=== PATIENT | male | born 1945 | race Caucasian/White ===

== ENCOUNTER → 2016-11-22 | Outpatient (CLI) | payer MEDICARE ==
--- NOTE | 2016-11-22 16:31 | Diagnostic Imaging Report ---
EXAMINATION: Right lower extremity duplex venous ultrasound. TECHNIQUE: DVT protocol. Multiple sonographic images with color Doppler and waveform interrogation were performed of the right lower extremity veins with compression and augmentation maneuvers. INDICATION: Right leg pain. FINDINGS: The right lower extremity veins from the groin to below the knee veins were examined with normal color-flow, compressibility and normal waveform demonstrated. The great saphenous vein is patent. IMPRESSION: No evidence of DVT in the right lower extremity. Dictated by: Dictated on workstation # [id number]
== END ==
LOC: RAD 16:02
DX: M79.89 Other specified soft tissue disorders (principal)

== ENCOUNTER 2021-03-22 23:55 | Inpatient (IN) | payer MEDICARE ==
[~2021-03-22] VITALS: Ht 172.7 cm; Wt 82.0 kg
--- NOTE | 2021-03-23 01:01 | ED Respiratory ---
General Chief Complaint: Respiratory Problems Stated Complaint: SOB Nursing Triage Note: soa x2 weeks, productive cough Source: patient Exam Limitations: no limitations (LINDA MAYA STUDENT) History of Present Illness Date Seen by Provider: Mar 23, 2021 Time Seen by Provider: 00:40 Initial Comments Pt presents to ED via POV with complaint of SOA. He states that it began 2wks ago and denies recent travel or sick contacts. He has intermittently felt out of breath, worse with laying on his back, and better with upright positioning. He has had a clear productive cough. No complaints of pain or other discomfort. He was a 1/2ppd smoker but quit about 30yrs ago. Only takes OTC allergy medication and levothyroxine. Denies chest pain, N/V, abd pain, dysuria. Timing/Duration: other (onset 2wks ago) Severity: moderate Context: anxiety with sleeping and unable to catch breath Prior Episodes/Possible Cause: unknown cause Modifying Factors: Improves With Coughing, Improves With Lying Down (worse with laying flat) Associated Symptoms: cough; No facial pain, No fever/chills, No headache, No lightheadedness; shortness of breath; No sore throat (LINDA MAYA STUDENT) Initial Comments Patient endorses orthopnea no fever and his cough is only productive of clear phlegm. He denies a history of heart failure swelling or weight gain. No history of heart disease. No chest pain. No history of pulmonary embolism. (WILMA LOPEZ) Allergies and Home Medications Allergies Coded Allergies: No Known Drug Allergies (Unverified , 03/23/21) Patient Home Medication List Home Medication List Reviewed: Yes (LINDA MAYA STUDENT) Review of Systems Review of Systems Constitutional: No chills, No dizziness, No fever EENTM: No hearing loss, No ear pain, No vision loss Respiratory: cough, short of breath Cardiovascular: No chest pain, No edema, No palpitations Gastrointestinal: No abdominal pain, No constipation, No diarrhea, No nausea, N o vomiting Genitourinary: No decreased output, No dysuria, No hematuria Musculoskeletal: No back pain, No joint pain, No muscle pain Skin: No change in color, No rash Psychiatric/Neurological: Denies Headache, Denies Numbness, Denies Paresthesia, Denies Tingling (LINDA MAYA STUDENT) All Other Systems Reviewed Negative Unless Noted: Yes (LINDA MAYA STUDENT) Past Qxrcriv-Nchqnc-Cnvpit Hx Past Med/Social Hx: Reviewed Nursing Past Med/Soc Hx (LINDA MAYA) Patient Social History Alcohol Use: Denies Use Type Used: Smokeless Tobacco 2nd Hand Smoke Exposure: No Recent Infectious Disease Expo: No Recent Hopitalizations: No (LINDA MAYA) Immunizations Up To Date Tetanus Booster (TDap): Unknown (LINDA MAYA) Seasonal Allergies Seasonal Allergies: No (LINDA MAYA) Past Medical History Surgeries: Yes (hernia l groin) Respiratory: No Cardiac: No Neurological: No Genitourinary: No Gastrointestinal: No Musculoskeletal: No Endocrine: Yes Hypothyroidsim HEENT: No Cancer: No Psychosocial: No Integumentary: No Blood Disorders: No (FRANCESCOLINDA CALDERON) Physical Exam Vital Signs - First Documented 03/23/21 00:10 Temp 36.5 Pulse 112 Resp 20 B/P (MAP) 143/90 (107) Pulse Ox 95 O2 Delivery Room Air (WILMA LOPEZ) Capillary Refill : Less Than 3 Seconds (FRANCESCOLINDA CALDERON) Height: '" Weight: lbs. oz. kg; 27.00 BMI Method: General Appearance: WD/WN, no apparent distress Eyes: Bilateral Eye Normal Inspection, Bilateral Eye PERRL, Bilateral Eye EOMI HEENT: PERRL/EOMI, TMs normal (unable to visualize L TM due to cerumen) Neck: non-tender, full range of motion, supple, normal inspection Respiratory: chest non-tender, lungs clear, normal breath sounds, no respiratory distress, no accessory muscle use Cardiovascular: normal peripheral pulses, regular rate, rhythm, no murmur Gastrointestinal: normal bowel sounds, non tender, soft Extremities: normal range of motion, non-tender, normal inspection Neurologic/Psychiatric: no motor/sensory deficits, alert, normal mood/affect, oriented x 3 Skin: normal color, warm/dry Lymphatic: no adenopathy (LINDA MAYA STUDENT) Progress/Results/Core Measures Suspected Sepsis Recent Fever Within 48 Hours: No Infection Criteria Present: None New/Unexplained Altered Menta: No Sepsis Screen: No Definite Risk SIRS Temperature: Pulse: 112 Respiratory Rate: 20 Blood Pressure 143 /90 Mean: 107 (FRANCESCOLINDA [facility] STUDENT) Results/Orders Lab Results Laboratory Tests Test 03/23/21 02:25 03/23/21 02:30 Range/Units Influenza Type A (RT-PCR) Not Detected Not Detecte Influenza Type B (RT-PCR) Not Detected Not Detecte SARS-CoV-2 RNA (RT-PCR) Not Detected Not Detecte White Blood Count 13.2 H 4.3-11.0 10^3/uL Red Blood Count 4.18 L 4.30-5.52 10^6/uL Hemoglobin 13.1 L 13.3-17.7 g/dL Hematocrit 39 L 40-54 % Mean Corpuscular Volume 94 80-99 fL Mean Corpuscular Hemoglobin 31 25-34 pg Mean Corpuscular Hemoglobin Concent 33 32-36 g/dL Red Cell Distribution Width 13.2 10.0-14.5 % Platelet Count 224 130-400 10^3/uL Mean Platelet Volume 10.6 9.0-12.2 fL Immature Granulocyte % (Auto) 0 % Neutrophils (%) (Auto) 77 H 42-75 % Lymphocytes (%) (Auto) 11 L 12-44 % Monocytes (%) (Auto) 10 0-12 % Eosinophils (%) (Auto) 1 0-10 % Basophils (%) (Auto) 0 0-10 % Neutrophils # (Auto) 10.2 H 1.8-7.8 10^3/uL Lymphocytes # (Auto) 1.4 1.0-4.0 10^3/uL Monocytes # (Auto) 1.3 H 0.0-1.0 10^3/uL Eosinophils # (Auto) 0.1 0.0-0.3 10^3/uL Basophils # (Auto) 0.0 0.0-0.1 10^3/uL Immature Granulocyte # (Auto) 0.1 0.0-0.1 10^3/uL Sodium Level 138 135-145 MMOL/L Potassium Level 4.3 3.6-5.0 MMOL/L Chloride Level 104 98-107 MMOL/L Carbon Dioxide Level 18 L 21-32 MMOL/L Anion Gap 16 H 5-14 MMOL/L Blood Urea Nitrogen 22 H 7-18 MG/DL Creatinine 1.51 H 0.60-1.30 MG/DL Estimat Glomerular Filtration Rate 45 BUN/Creatinine Ratio 15 Glucose Level 117 H 70-105 MG/DL Calcium Level 9.7 8.5-10.1 MG/DL Corrected Calcium 9.9 8.5-10.1 MG/DL Total Bilirubin 0.6 0.1-1.0 MG/DL Aspartate Amino Transf (AST/SGOT) 36 H 5-34 U/L Alanine Aminotransferase (ALT/SGPT) 40 0-55 U/L Alkaline Phosphatase 64 40-136 U/L Troponin I 0.175 H <0.028 NG/ML C-Reactive Protein High Sensitivity 3.30 H 0.00-0.50 MG/DL B-Type Natriuretic Peptide 757.1 H <100.0 PG/ML Total Protein 7.6 6.4-8.2 GM/DL Albumin 3.8 3.2-4.5 GM/DL (WILMA LOPEZ) My Orders Orders - WILMA LOPEZ Covid 19 Inhouse Test (03/23/21 02:09) Influenza A And B By Pcr (03/23/21 02:09) Cbc With Automated Diff (03/23/21 02:09) Comprehensive Metabolic Panel (03/23/21 02:09) Chest 1 View, Ap/Pa Only (03/23/21 02:09) Hs C Reactive Protein (03/23/21 02:09) Ed Iv/Invasive Line Start (03/23/21 02:09) Ns Iv 1000 Ml (Sodium Chloride 0.9%) (03/23/21 02:15) Ed Iv/Invasive Line Start (03/23/21 03:46) Ns Iv 500 Ml (Sodium Chloride 0.9%) (03/23/21 04:00) Ct Angio Chest W (03/23/21 03:46) BNP (03/23/21 03:48) Iohexol Injection (Omnipaque 350 Mg/Ml 1 (03/23/21 04:00) Received Contrast (Hold Metformin- Contr (03/23/21 04:00) Sodium Chloride Flush (Catheter Flush Sy (03/23/21 04:00) Ns (Ivpb) (Sodium Chloride 0.9% Ivpb Bag (03/23/21 04:00) Ekg Tracing (03/23/21 04:37) Troponin I (03/23/21 04:37) Aspirin Chewable Tablet (Baby Aspirin Ch (03/23/21 04:45) Furosemide Injection (Lasix Injection) (03/23/21 05:45) Metoprolol Succinate (Xl) Tab (Toprol Xl (03/23/21 05:45) (WILMA LOPEZ) Medications Given in ED Current Medications Medications Dose Ordered Sig/Bryant Route Start Time Stop Time Status Last Admin Dose Admin Aspirin 324 mg ONCE ONCE PO 03/23/21 04:45 03/23/21 04:46 DC 03/23/21 04:47 324 MG Iohexol 100 ml ONCE ONCE IV 03/23/21 04:00 03/23/21 04:01 DC 03/23/21 04:19 70 ML Sodium Chloride 10 ml NEEDED PRN IV 03/23/21 04:00 03/23/21 04:19 10 ML Sodium Chloride 100 ml ONCE ONCE IV 03/23/21 04:00 03/23/21 04:01 DC 03/23/21 04:19 80 ML (WILMA LOPEZ) Vital Signs/I&O 03/23/21 00:10 Temp 36.5 Pulse 112 Resp 20 B/P (MAP) 143/90 (107) Pulse Ox 95 O2 Delivery Room Air (WILMA LOPEZ) Vital Signs/I&O Capillary Refill : Less Than 3 Seconds (LINDA MAYA MED STUDENT) Blood Pressure Mean: 107 Progress Note #1: Time: 03:49 Progress Note I attest that I saw this patient alongside the medical student and agree with his documented history, physical exam and review of systems except as otherwise noted. Concern for orthopnea although he does not have a history of heart failure given his age we will check a BNP. He did seem to get worse after gave a liter of fluids perhaps coincidentally. He does have some crowding and infiltrates on the right side of his lower lung. 13,000 white count and a cough only productive of occasional clear phlegm. Questioning the diagnosis of pneumonia versus pulmonary embolism versus heart failure. We will get a CT angiogram. Progress Note #2: Time: 05:23 Progress Note Lasix 40 mg, aspirin and look for inpatient placement after discussing the case with the patient. (WILMA LOPEZ) ECG Initial ECG Impression Date: Mar 23, 2021 Initial ECG Impression Time: 04:40 Initial ECG Rate: 114 Initial ECG Rhythm: S.Tach Initial ECG Intervals: Normal Initial ECG Impression: Normal Initial ECG Comparisson: No Previous ECG Available Comment Sinus tachycardia with no clinically relevant ST elevation or depression. (WILMA LOPEZ) Diagnostic Imaging Diagonstic Imaging: Xray Plain Films/CT/US/NM/MRI: chest Comments Right lower lobe infiltrate pulmonary congestion appearance. [facility], [place] NAME: NIRURADHA CUI [facility] REC#: [id number] PT STATUS: ADM IN : 1945 PHYSICIAN: WILMA LOPEZ MD ADMIT DATE: 03/23/21 Draft Date of Exam:03/23/21 CHEST 1 VIEW, AP/PA ONLY CHEST 1 VIEW, AP/PA ONLY Indication: Difficulty breathing Comparison: None available. Findings: Bilateral ill-defined pulmonary opacities are most confluent in the right upper lung. Bilateral layering pleural effusions. Cardiac silhouette is enlarged. No pneumothorax. Impression: 1. Cardiomegaly with features most suggestive of congestive heart failure as there is likely pulmonary edema with pleural effusions. Alternatively, atypical infection could give this appearance in appropriate setting. Dictated on workstation # [id number] Dict: 03/23/21608 Trans: 03/23/21 06 [facility] [id number] Interpreted by: DELMER REA MD Electronically signed by: Reviewed: Reviewed by Me Diagonstic Imaging: CT Plain Films/CT/US/NM/MRI: chest (Angiogram) Comments Moderate bilateral pleural effusions. Patchy groundglass opacities concerning for an infectious or inflammatory process. No central pulmonary embolus or thoracic aortic dissection. Morphologic features of cirrhosis. Nonspecific mediastinal and hilar lymphadenopathy. [facility] [place] NAME: NIRURADHA CUI [facility] REC#: [id number] PT STATUS: ADM IN : 1945 PHYSICIAN: WILMA LOPEZ MD ADMIT DATE: 03/23/21 Draft Date of Exam:03/23/21 CT ANGIO CHEST W PROCEDURE: CT angiography Chest TECHNIQUE: After intravenous administration of contrast, thin section axial CT angiography of the chest was performed. 3D MIP reconstructions were made. All CT scans use one or more of the following dose optimizing techniques: automated exposure control, MA and/or KvP adjustment based on a patient size and exam type, or iterative reconstruction. INDICATION: Difficulty breathing COMPARISON: None available. FINDINGS: Vasculature: No pulmonary emboli. No features of right ventricular strain or pulmonary hypertension. Aorta is not opacified and therefore cannot be assessed for pathology. Heart and mediastinum: Visualized thyroid is normal. No supraclavicular or axillary lymphadenopathy. There are multiple mildly enlarged mediastinal and hilar lymph nodes. A right upper paratracheal lymph node measures 1.5 cm. A right hilar lymph node measures 1.7 cm. Heart is enlarged without pericardial effusion. Pleura: Moderate to large bilateral pleural effusions. Lungs and airway: No endoluminal lesion in the trachea or central bronchi. Groundglass opacities and consolidations are present in the right upper lobe. Patchy groundglass opacities and interlobular septal thickening are seen throughout the remainder of the lungs. Upper abdomen: Small sliding-type hiatal hernia. No acute abnormality in the upper abdomen is appreciated. Musculoskeletal: No concerning osseous lesion. IMPRESSION: 1. No acute pulmonary emboli. 2. Bilateral groundglass pulmonary opacities and consolidations are most advanced in the right upper lobe. These are most likely due to pulmonary edema, especially given the moderate to large pleural effusions. Atypical infection could also give this appearance in appropriate setting. 3. Mildly enlarged mediastinal and hilar lymph nodes are likely reactive in nature. 4. Findings are in agreement with the preliminary report. Dictated on workstation # [id number] Dict: 03/23/21 0553 Trans: 03/23/21 0657 [facility] [id number] Interpreted by: DELMER REA MD Electronically signed by: Reviewed: Reviewed Night [facility] Study, Reviewed by Me (WILMA LOPEZ) Departure Communication (Admissions) Time/Spoke to Admitting Phy: 05:25 Discussed the case with Dr. Youssef who agrees to admit the patient to the floor on telemetry with consultation to cardiology. Time/Spoke to Consulting Phy: 05:27 Discussed the case with Dr. Weiner, cardiology who recommends aspirin, Toprol XL 50 mg p.o. daily, 2D echo. Trend the troponins and he will see the patient in consultation. (WILMA LOPEZ) Impression Primary Impression: Heart failure Qualified Codes: I50.9 - Heart failure, unspecified Additional Impression: Acute respiratory failure with hypoxia Disposition: ADMITTED INPATIENT Condition: Stable Admissions Decision to Admit Reason: Admit from ER (General) Decision to Admit/Date: Mar 23, 2021 Time/Decision to Admit Time: 04:00 (WILMA LOPEZ) Departure-Patient Inst. Referrals: ZEYNEP ENRIQUEZ MD (PCP/Family) Primary Care Physician LINDA MAYA MED STUDENT Mar 23, 2021 01:01 WILMA LOPEZ Mar 23, 2021 03:50
[2021-03-23] MEDS ORDERED: NS IV 1000 ML 1,000 ML IV SCH ×2 (02:15→12:00)
[2021-03-23 02:46] LABS: BASOPHILS % (AUTO) 0 % (0-10); EOSINOPHILS # (AUTO) 0.1 10^3/uL (0.0-0.3); EOSINOPHILS % (AUTO) 1 % (0-10); HEMATOCRIT 39 % (40-54); HEMOGLOBIN 13.1 g/dL (13.3-17.7); LYMPHOCYTES # (AUTO) 1.4 10^3/uL (1.0-4.0); LYMPHOCYTES % (AUTO) 11 % (12-44); MEAN CORPUSCULAR HEMOGLOBIN 31 pg (25-34); MEAN CORPUSCULAR HGB CONC 33 g/dL (32-36); MEAN CORPUSCULAR VOLUME 94 fL (80-99); MEAN PLATELET VOLUME 10.6 fL (9.0-12.2); MONOCYTES # (AUTO) 1.3 10^3/uL (0.0-1.0); MONOCYTES % (AUTO) 10 % (0-12); NEUTROPHILS # (AUTO) 10.2 10^3/uL (1.8-7.8); NEUTROPHILS % (AUTO) 77 % (42-75); PLATELET COUNT 224 10^3/uL (130-400); WHITE BLOOD COUNT 13.2 10^3/uL (4.3-11.0)
[2021-03-23 02:57] LABS: ALBUMIN 3.8 GM/DL (3.2-4.5); POTASSIUM 4.3 MMOL/L (3.6-5.0)
[2021-03-23 02:58] LABS: CALCIUM 9.7 MG/DL (8.5-10.1)
[2021-03-23 03:00] LABS: TOTAL PROTEIN 7.6 GM/DL (6.4-8.2)
[2021-03-23 03:01] LABS: BILIRUBIN,TOTAL 0.6 MG/DL (0.1-1.0)
[2021-03-23 03:03] LABS: CREATININE SERUM 1.51 MG/DL (0.60-1.30)
[2021-03-23] MEDS ORDERED: CATHETER FLUSH 10 ML SYR IV PRN (04:00)
[2021-03-23] MEDS ORDERED: NS 100 ML (IVPB) BAG IV ONE (04:00)
[2021-03-23] MEDS ORDERED: NS IV 500 ML 500 ML IV ONE (04:00)
[2021-03-23] MEDS ORDERED: HOLD METFORMIN - RECEIVED CONTRAST 20 ML VIAL IV SCH (04:00)
[2021-03-23] MEDS ORDERED: IOHEXOL 350 MG/ML 100 ML (OMNIPAQUE 350) VIAL IV ONE (04:00)
[2021-03-23] MEDS ORDERED: ASPIRIN 81 MG CHEW (CHILDREN'S ASA) PO ONE (04:45)
[2021-03-23] MEDS ORDERED: FUROSEMIDE 40 MG/4 ML INJ (LASIX) IVP ONE ×2 (05:45→11:45)
[2021-03-23] MEDS ORDERED: meTOproloL SUCCINATE 50 MG (TOPROL XL) TAB PO SCH (05:45)
[2021-03-23] MEDS ORDERED: ONDANSETRON 4 MG/2 ML (SDV) Z0FRAN IV PRN (06:00)
[2021-03-23 06:09] VITALS: BP 137/80
[2021-03-23] MEDS ORDERED: ACETAMINOPHEN 325 MG TABLET PO PRN (06:15)
--- NOTE | 2021-03-23 06:25 | Diagnostic Imaging Report ---
CHEST 1 VIEW, AP/PA ONLY Indication: Difficulty breathing Comparison: None available. Findings: Bilateral ill-defined pulmonary opacities are most confluent in the right upper lung. Bilateral layering pleural effusions. Cardiac silhouette is enlarged. No pneumothorax. Impression: 1. Cardiomegaly with features most suggestive of congestive heart failure as there is likely pulmonary edema with pleural effusions. Alternatively, atypical infection could give this appearance in appropriate setting. Dictated by: Dictated on workstation # [id number]
--- NOTE | 2021-03-23 06:57 | Diagnostic Imaging Report ---
PROCEDURE: CT angiography Chest TECHNIQUE: After intravenous administration of contrast, thin section axial CT angiography of the chest was performed. 3D MIP reconstructions were made. All CT scans use one or more of the following dose optimizing techniques: automated exposure control, MA and/or KvP adjustment based on a patient size and exam type, or iterative reconstruction. INDICATION: Difficulty breathing COMPARISON: None available. FINDINGS: Vasculature: No pulmonary emboli. No features of right ventricular strain or pulmonary hypertension. Aorta is not opacified and therefore cannot be assessed for pathology. Heart and mediastinum: Visualized thyroid is normal. No supraclavicular or axillary lymphadenopathy. There are multiple mildly enlarged mediastinal and hilar lymph nodes. A right upper paratracheal lymph node measures 1.5 cm. A right hilar lymph node measures 1.7 cm. Heart is enlarged without pericardial effusion. Pleura: Moderate to large bilateral pleural effusions. Lungs and airway: No endoluminal lesion in the trachea or central bronchi. Groundglass opacities and consolidations are present in the right upper lobe. Patchy groundglass opacities and interlobular septal thickening are seen throughout the remainder of the lungs. Upper abdomen: Small sliding-type hiatal hernia. No acute abnormality in the upper abdomen is appreciated. Musculoskeletal: No concerning osseous lesion. IMPRESSION: 1. No acute pulmonary emboli. 2. Bilateral groundglass pulmonary opacities and consolidations are most advanced in the right upper lobe. These are most likely due to pulmonary edema, especially given the moderate to large pleural effusions. Atypical infection could also give this appearance in appropriate setting. 3. Mildly enlarged mediastinal and hilar lymph nodes are likely reactive in nature. 4. Findings are in agreement with the preliminary report. Dictated by: Dictated on workstation # [id number]
[2021-03-23] MEDS ORDERED: FUROSEMIDE 40 MG/4 ML INJ (LASIX) IVP SCH ×3 (07:00→17:00)
[2021-03-23] MEDS: CATHETER FLUSH 10 ML SYR IV SCH ×2 (07:04→12:01)
[2021-03-23 08:14] VITALS: BP 132/61
[2021-03-23 08:41] VITALS: BP 137/80
[2021-03-23] MEDS ORDERED: ASPIRIN 81 MG CHEW (CHILDREN'S ASA) PO SCH (09:00)
--- NOTE | 2021-03-23 09:54 | History & Physical-Hospitalist ---
History of Present Illness HPI/Chief Complaint Pt is a 75yoCM with a PMH of hypothyroidism who presented to the ER due to SOB and orthopnea. He reports that he has been short of breath for 2 weeks. He has a cough with clear sputum that has been present for like 1.5 weeks. Last night he was unable to even lie down without having difficulty breathing which was an abr upt change from the night before so he decided to seek evaluation in the ER. He was found to have vascular congestion on CXR and an elevated BNP. He was admitted for presumed CHF exacerbation. This is a new diagnosis for him. He has not history of heart disease though his father at 46yo from an [place]. He report feeling slightly better but still coughing a lot. Source: patient Date Seen 03/23/21 Time Seen by a Provider: 09:54 Attending Physician Marc Youssef MD PCP Robi Carballo MD Referring Physician Date of Admission Mar 23, 2021 at 05:32 Home Medications & Allergies Home Medications Reviewed patient Home Medication Reconciliation performed by pharmacy medication reconciliations senior quality control technician and/or nursing. Patients Allergies have been reviewed. Allergies Allergies Coded Allergies No Known Drug Allergies (Unverified03/23/21) Past Dgfbxkl-Npimpx-Dmrvjk Hx Patient Social History Marrital Status: Smoking Status: Former Smoker Immunizations Up To Date First/Initial COVID19 Vaccinat: 12-28-20 Second COVID19 Vaccination Charli: 01-30-21 Tetanus Booster (TDap): Unknown Seasonal Allergies Seasonal Allergies: No Current Status Advance Directives: No Communicates: Verbally Primary Language: Chinese Preferred Spoken Language: Chinese Is interpretation needed?: No Past Medical History Surgeries: Abdominal (hernia), Tonsillectomy Hypothyroidsim Blood Disorders: No Family Medical History Reviewed Nursing Family Hx No Pertinent Family Hx Review of Systems Constitutional: No chills, No fever Respiratory: cough, dyspnea on exertion; No hemoptysis; orthopnea, short of breath Cardiovascular: No chest pain, No edema, No Hx of Intervention, No palpitations Gastrointestinal: No abdominal pain, No constipation, No diarrhea, No nausea, No vomiting Genitourinary: No discharge, No dysuria Musculoskeletal: no symptoms reported Skin: no symptoms reported Physical Exam Physical Exam Vital Signs Vital Signs - First Documented 03/23/21 03/23/21 00:10 05:45 Temp 36.5 Pulse 112 Resp 20 B/P (MAP) 143/90 (107) Pulse Ox 95 O2 Delivery Room Air O2 Flow Rate 2.00 Capillary Refill : Less Than 3 Seconds Height, Weight, BMI Height: '" Weight: lbs. oz. kg; 27.49 BMI Method: General Appearance: No Apparent Distress, WD/WN HEENT: PERRL/EOMI, Moist Mucous Membranes Neck: Normal Inspection, Supple Respiratory: No Accessory Muscle Use, No Respiratory Distress, Decreased Breath Sounds (in bases) Cardiovascular: Regular Rate, Rhythm, No Murmur Gastrointestinal: Normal Bowel Sounds, Non Tender, Soft Extremity: No Calf Tenderness, No Pedal Edema Neurologic/Psychiatric: Alert, Oriented x3, Normal Mood/Affect Results Results/Procedures Labs Laboratory Tests 03/23/21 02:30 Patient resulted labs reviewed. Imaging: Reviewed Imaging Report [facility] [place] [place] NAME: [facility] REC#: [id number] PT STATUS: ADM IN : 1945 PHYSICIAN: WILMA LOPEZ MD ADMIT DATE: 03/23/21 Signed Date of Exam:03/23/21 CHEST 1 VIEW, AP/PA ONLY CHEST 1 VIEW, AP/PA ONLY Indication: Difficulty breathing Comparison: None available. Findings: Bilateral ill-defined pulmonary opacities are most confluent in the right upper lung. Bilateral layering pleural effusions. Cardiac silhouette is enlarged. No pneumothorax. Impression: 1. Cardiomegaly with features most suggestive of congestive heart failure as there is likely pulmonary edema with pleural effusions. Alternatively, atypical infection could give this appearance in appropriate setting. Dictated by: Dictated on workstation # [id number] Dict: 03/23/21608 Trans: 03/23/21 0745 BETSY [id number] Interpreted by: DELMER REA MD Electronically signed by: DELMER REA MD 03/23/21 0745 [facility] [place] [place] NAME: [facility] REC#: [id number] PT STATUS: ADM IN : 1945 PHYSICIAN: WILMA LOPEZ MD ADMIT DATE: 03/23/21 Signed Date of Exam:03/23/21 CT ANGIO CHEST W PROCEDURE: CT angiography Chest TECHNIQUE: After intravenous administration of contrast, thin section axial CT angiography of the chest was performed. 3D MIP reconstructions were made. All CT scans use one or more of the following dose optimizing techniques: automated exposure control, MA and/or KvP adjustment based on a patient size and exam type, or iterative reconstruction. INDICATION: Difficulty breathing COMPARISON: None available. FINDINGS: Vasculature: No pulmonary emboli. No features of right ventricular strain or pulmonary hypertension. Aorta is not opacified and therefore cannot be assessed for pathology. Heart and mediastinum: Visualized thyroid is normal. No supraclavicular or axillary lymphadenopathy. There are multiple mildly enlarged mediastinal and hilar lymph nodes. A right upper paratracheal lymph node measures 1.5 cm. A right hilar lymph node measures 1.7 cm. Heart is enlarged without pericardial effusion. Pleura: Moderate to large bilateral pleural effusions. Lungs and airway: No endoluminal lesion in the trachea or central bronchi. Groundglass opacities and consolidations are present in the right upper lobe. Patchy groundglass opacities and interlobular septal thickening are seen throughout the remainder of the lungs. Upper abdomen: Small sliding-type hiatal hernia. No acute abnormality in the upper abdomen is appreciated. Musculoskeletal: No concerning osseous lesion. IMPRESSION: 1. No acute pulmonary emboli. 2. Bilateral groundglass pulmonary opacities and consolidations are most advanced in the right upper lobe. These are most likely due to pulmonary edema, especially given the moderate to large pleural effusions. Atypical infection could also give this appearance in appropriate setting. 3. Mildly enlarged mediastinal and hilar lymph nodes are likely reactive in nature. 4. Findings are in agreement with the preliminary report. Dictated by: Dictated on workstation # [id number] Dict: 03/23/21 0553 Trans: 03/23/21 0746 BETSY [id number] Interpreted by: DELMER REA MD Electronically signed by: DELMER REA MD 03/23/21 0746 Assessment/Plan Admission Diagnosis CHF exacerbation Admission Status: Inpatient Order (span 2 midnights) Reason for Inpatient Admission: see below Assessment and Plan CHF exacerbation NSTEMI troponin elevated on arrival and trended up Cardiology consulted Continue Lasix monitor on telemetry Discussed with FRANCISCO Mcpherson from Dr Weiner and plan is for cath today Echo Hypothyroidism Continue home synthroid ?THERESA Creatinine 1.51 with no baseline Trend DVT ppx: Lovenox Diagnosis/Problems Diagnosis/Problems (1) Hypothyroidism (2) Acute respiratory failure with hypoxia Status: Acute (3) Heart failure Status: Acute Qualifiers: Heart failure type: unspecified Heart failure chronicity: acute Qualified Codes: I50.9 - Heart failure, unspecified SENTHIL EDWARDS MD Mar 23, 2021 09:54
[2021-03-23] MEDS ORDERED: guaiFENesin (MUCINEX) 600 MG TAB PO PRN (10:00)
[2021-03-23] MEDS ORDERED: LIDOCAINE 1% INJ 20 ML 20 ML VIAL ONE ×2 (10:42→15:14)
[2021-03-23] MEDS ORDERED: HEParin (CATH LAB) 2,000 ML IV ONE (10:43)
--- NOTE | 2021-03-23 11:30 | Consultation-Cardiology ---
HPI-Cardiology Cardiology Consultation: Date of Consultation 03/23/21 Time Seen by a Provider: 11:10 Date of Admission 03-22-21 Attending Physician Marc Youssef MD Admitting Physician Robi Carballo MD Consulting Physician Dara Weiner MD HPI: Chief Complaint: SOB Chest discomfort Mr. Vogel is a 75 yr old male admitted to [facility] with c/o progressive dyspnea over the course of the last few weeks. He has dyspnea with rest, but it becomes significantly worse with any exertion. He states yesterday the SOB became worse and he was having mid-sternal chest pressure which lasted for approx 30 minutes. No other assoc symptoms. He reports dry cough over the last few weeks. No c/o n/v/d. No c/o fever or chills. He denies any palpitations. No c/o syncope or near syncope. He reports a year ago he was able to play 18 holes of golf and was very active. His SOB has been activity limiting. Review of Systems-Cardiology Review of Systems Constitutional: No chills, No fever; tiredness; No weight loss, No weight gain Eyes: No vision change Ears/Nose/Throat: No epistaxis, No recent hearing loss Respiratory: As described under HPI Cardiovascular: As described under HPI Gastrointestinal: No constipation, No diarrhea, No nausea, No vomiting Genitourinary: No dysuria, No hematuria Musculoskeletal: no symptoms reported Skin: No rash on exposed areas, No ulcerations on exposed areas Psychiatric/Neurological: No anxiety, No depression, No seizure, No focal weakness, No syncope Hematologic: No bleeding abnormalities All Other Systems Reviewed Negative Unless Noted: Yes EXR-Lcfvxn-Elqimk Hx Patient Social History 2nd Hand Smoke Exposure: No Have you traveled recently?: No Immunizations Up To Date Tetanus Booster (TDap): Unknown Past Medical History PMH As described under Assessment. Family Medical History Family Medical History: He reports his father from an [place] at age 46. He reports his siblings all have CAD. Allergies and Home Medications Allergies Coded Allergies: No Known Drug Allergies (Unverified , 03/23/21) Home Medications Aspirin/Acetaminophen/Caffeine 1 Each Tablet, 2 EACH PO Q6-8HR PRN for Headache, (Reported) Last Action: Converted Diphenhydramine HCl 25 Mg Tablet, 25-50 MG PO Q6H PRN for ALLERGY SYMPTOMS, (Reported) Last Action: Held Levothyroxine Sodium 88 Mcg Tablet, 88 MCG PO DAILY, (Reported) Last Action: Continued Multivit-Min/FA/Lycopene/Lut 1 Each Tablet, 1 EACH PO DAILY, (Reported) Last Action: Held Physical Exam-Cardiology Physical Exam Vital Signs/I&O 03/24/21 00:00 Intake Total 0 ml Output Total 1100 ml Balance -1100 ml Capillary Refill : Less Than 3 Seconds Constitutional: AAO x 3, well-developed, well-nourished HEENT: PERRL, hearing is well preserved, oral hygience is good Neck: No carotid bruit; carotid pulses are 2 + bilaterally Respiratory: other (dyspneic with simple conversation) Cardiovascular: regular rate-rhythm; No JVD; S1 and S2 Gastrointestinal: No tender; soft, round, audible bowel sounds Extremities: no lower extremity edema bilateral Neurologic/Psychiatric: grossly intact (moves all extremities) Skin: No rash on exposed areas, No ulcerations on exposed areas Lymphatic: no adenopathy Data Review Labs Laboratory Tests 03/23/21 09:05: Troponin I 0.497*H, Procalcitonin 0.08 03/23/21 14:41: Troponin I 1.170*H Radiology NAME: RADHA VOGEL [facility] REC#: [id number] PT STATUS: ADM IN : 1945 PHYSICIAN: WILMA LOPEZ MD ADMIT DATE: 03/23/21 Signed Date of Exam:03/23/21 CHEST 1 VIEW, AP/PA ONLY CHEST 1 VIEW, AP/PA ONLY Indication: Difficulty breathing Comparison: None available. Findings: Bilateral ill-defined pulmonary opacities are most confluent in the right upper lung. Bilateral layering pleural effusions. Cardiac silhouette is enlarged. No pneumothorax. Impression: 1. Cardiomegaly with features most suggestive of congestive heart failure as there is likely pulmonary edema with pleural effusions. Alternatively, atypical infection could give this appearance in appropriate setting. Dictated by: Dictated on workstation # [id number] Dict: 03/23/21608 Trans: 03/23/21 0745 BETSY [id number] Interpreted by: DELMER REA MD Electronically signed by: DELMER REA MD 03/23/21 0745 ECG Impression ECG Comment ST with non-specific T-wave abnormalities A/P-Cardiology Assessment/Admission Diagnosis NSTEMI Progressive dyspnea CHF Hypothyroidism - replacement tx Renal insufficiency of undetermined length of time Family h/o CAD - father age 46 passed from [place], siblings with CAD Discussion and Recomendations NSTEMI with continued symptoms Advise cardiac cath. Discussed procedure, risks, benefits and potential complications of cardiac cath with possible ad hoc coronary intervention. He provides informed consent Continue ASA and add Plavix Echocardiogram to eval structure and function Continue BB Continue diuretics Further recs will be based on his hospital course Monitor lab closely and replace electrolytes as indicated We would like to thank medical services for this consult IDA EBNNETT Mar 23, 2021 11:30
[2021-03-23 11:45] VITALS: BP 115/68
[2021-03-23] MEDS ORDERED: CLOPIDOGREL 300 MG (PLAVIX) TABLET PO ONE (12:00)
[2021-03-23] MEDS ORDERED: ASPI-789 PO (13:42)
[2021-03-23] MEDS ORDERED: LEVO88TA54 PO (13:42)
[2021-03-23] MEDS ORDERED: MULT-1029 PO (13:42)
[2021-03-23] MEDS ORDERED: DIPH25TA65 PO (13:42)
[2021-03-23] MEDS ORDERED: MIDAZOLAM 5 MG/5 ML (VERSED) VIAL ONE (14:47)
[2021-03-23] MEDS ORDERED: fentaNYL INJ 100 MCG/2 ML AMP ONE (14:47)
[2021-03-23] MEDS ORDERED: NON-FORMULARY MEDICATION 1 EA EA (Aspirin/Acetaminophen/Caffeine (Excedrin Migraine Caplet PO PRN (15:00)
[2021-03-23] MEDS ORDERED: ASPIRIN 325 MG (5 GR) TABLET PO PRN (15:15)
[2021-03-23] MEDS ORDERED: ACETAMINOPHEN 500 MG TAB (TYLENOL) PO PRN (15:15)
[2021-03-23] MEDS ORDERED: HEParin (CATH LAB) 1,000 ML IV ONE (15:56)
[2021-03-23] MEDS ORDERED: HEParin 1000 UNIT/ML (10ML VIAL) FOR BOLUS ONE (15:56)
[2021-03-23] MEDS ORDERED: HEParin DRIP 25000 UNIT/500ML 500 ML IV ONE (15:56)
--- NOTE | 2021-03-23 16:52 | Consultation-Cardiology ---
HPI-Cardiology Cardiology Consultation: Date of Consultation 03/23/21 Time Seen by a Provider: 15:45 Date of Admission Attending Physician Marc Youssef MD Admitting Physician Robi Carballo MD Consulting Physician LORNE URRUTIA MD, MA, FACP, FACC, FSCAI, CCDS HPI: Chief Complaint: CC: Shortness of breath, chest discomfort HPI Mr. Vogel is a 75 yr old male admitted to [facility] with c/o progressive dyspnea over the course of the last few weeks. He has dyspnea with rest, but it becomes significantly worse with any exertion. He states yesterday the SOB became worse and he was having mid-sternal chest pressure which lasted for approx 30 minutes. No other assoc symptoms. He reports dry cough over the last few weeks. No c/o n/v/d. No c/o fever or chills. He denies any palpitations. No c/o syncope or near syncope. He reports a year ago he was able to play 18 holes of golf and was very active. His SOB has been activity limiting. Review of Systems-Cardiology Review of Systems Constitutional: No chills, No fever; tiredness; No weight loss, No weight gain Eyes: No vision change Ears/Nose/Throat: No epistaxis, No recent hearing loss Respiratory: As described under HPI Cardiovascular: As described under HPI Gastrointestinal: No constipation, No diarrhea, No nausea, No vomiting Genitourinary: No dysuria, No hematuria Musculoskeletal: no symptoms reported Skin: No rash on exposed areas, No ulcerations on exposed areas Psychiatric/Neurological: No anxiety, No depression, No seizure, No focal weakness, No syncope Hematologic: No bleeding abnormalities All Other Systems Reviewed Negative Unless Noted: Yes NFX-Xnkxtt-Nhdhmb Hx Patient Social History Marrital Status: Smoking Status: Former Smoker 2nd Hand Smoke Exposure: No Have you traveled recently?: No Immunizations Up To Date Tetanus Booster (TDap): Unknown Past Medical History PMH As described under Assessment. Family Medical History Family Medical History: He reports his father from an [place] at age 46. He reports his siblings all have CAD. Allergies and Home Medications Allergies Coded Allergies: No Known Drug Allergies (Unverified , 03/23/21) Home Medications Aspirin/Acetaminophen/Caffeine 1 Each Tablet, 2 EACH PO Q6-8HR PRN for Headache, (Reported) Last Action: Converted Diphenhydramine HCl 25 Mg Tablet, 25-50 MG PO Q6H PRN for ALLERGY SYMPTOMS, (Reported) Last Action: Held Levothyroxine Sodium 88 Mcg Tablet, 88 MCG PO DAILY, (Reported) Last Action: Continued Multivit-Min/FA/Lycopene/Lut 1 Each Tablet, 1 EACH PO DAILY, (Reported) Last Action: Held Patient Home Medication List Home Medication List Reviewed: Yes Physical Exam-Cardiology Physical Exam Vital Signs/I&O 03/23/21 03/23/21 03/23/21 03/23/21 05:45 05:55 06:09 06:30 Temp 36.3 36.5 Pulse 102 110 102 Resp 14 20 B/P (MAP) 138/67 (107) 137/80 (99) Pulse Ox 96 95 95 O2 Delivery Nasal Cannula Room Air Room Air O2 Flow Rate 2.00 03/23/21 03/23/21 03/23/21 03/23/21 06:59 08:00 08:14 08:41 Temp 36.4 36.5 Pulse 94 98 102 Resp 20 B/P (MAP) 132/61 (84) Pulse Ox 90 92 O2 Delivery Room Air Room Air 03/23/21 03/23/21 03/23/21 10:28 11:45 13:00 Temp 36.4 Pulse 93 96 Resp 20 B/P (MAP) 115/68 (84) Pulse Ox 92 97 O2 Delivery Room Air Nasal Cannula O2 Flow Rate 2.00 Capillary Refill : Less Than 3 Seconds Constitutional: AAO x 3, well-developed, well-nourished HEENT: PERRL, hearing is well preserved, oral hygience is good Neck: No carotid bruit; carotid pulses are 2 + bilaterally Respiratory: other (dyspneic with simple conversation) Cardiovascular: regular rate-rhythm; No JVD; S1 and S2 Gastrointestinal: No tender; soft, round, audible bowel sounds Extremities: no lower extremity edema bilateral Neurologic/Psychiatric: grossly intact (moves all extremities) Skin: No rash on exposed areas, No ulcerations on exposed areas Lymphatic: no adenopathy Data Review Labs Laboratory Tests 03/23/21 02:25: Influenza Type A (RT-PCR) Not Detected, Influenza Type B (RT-PCR) Not Detected, SARS-CoV-2 RNA (RT-PCR) Not Detected 03/23/21 02:30: White Blood Count 13.2H, Red Blood Count 4.18L, Hemoglobin 13.1L, Hematocrit 39L , Mean Corpuscular Volume 94, Mean Corpuscular Hemoglobin 31, Mean Corpuscular Hemoglobin Concent 33, Red Cell Distribution Width 13.2, Platelet Count 224, Mean Platelet Volume 10.6, Immature Granulocyte % (Auto) 0, Neutrophils (%) (Auto) 77H, Lymphocytes (%) (Auto) 11L, Monocytes (%) (Auto) 10, Eosinophils (%) (Auto) 1, Basophils (%) (Auto) 0, Neutrophils # (Auto) 10.2H, Lymphocytes # (Auto) 1.4, Monocytes # (Auto) 1.3H, Eosinophils # (Auto) 0.1, Basophils # (Auto) 0.0, Immature Granulocyte # (Auto) 0.1, Sodium Level 138, Potassium Level 4.3, Chloride Level 104, Carbon Dioxide Level 18L, Anion Gap 16H, Blood Urea Nitrogen 22H, Creatinine 1.51H, Estimat Glomerular Filtration Rate 45, BUN/Creatinine Ratio 15, Glucose Level 117H, Calcium Level 9.7, Corrected Calcium 9.9, Total Bilirubin 0.6, Aspartate Amino Transf (AST/SGOT) 36H, Alanine Aminotransferase (ALT/SGPT) 40, Alkaline Phosphatase 64, Troponin I 0.175H, C- Reactive Protein High Sensitivity 3.30H, B-Type Natriuretic Peptide 757.1H, Total Protein 7.6, Albumin 3.8 03/23/21 09:05: Troponin I 0.497*H, Procalcitonin 0.08 03/23/21 14:41: Troponin I 1.170*H Laboratory Tests 03/23/21 02:30 A/P-Cardiology Assessment/Admission Diagnosis Acute HFrEF due to ischemic dilated cardiomyopathy - Echo 03/23/21: LVEF 30-35%, mod MR, biatrial enlargement PASP 50-55 mmHg - Card cath on 03/23/21: LVEF 10-15%, LVEDP 29 mmHg CAD, severe, multivessel - Small NSTEMI vs mild troponin elevation due to CHF on 03/22/21 - Card cath on 03/23/21: 70% distal LMCA, 95% ostial LAD, 99% prox LCX, chronically occluded RCA at its ostium Hypothyroidism - replacement tx Renal insuff of undetermined age. Suspect acute renal insuff due to CHF and low cardiac output Family h/o CAD - father age 46 passed from [place], siblings with CAD Discussion and Recomendations * Very complex management issue * Card cath done after a full discussion and after he provided informed consent. Severe multivessel CAD and advanced ischemic cm seen * Balloon pump placed to stabilize coronary flow as far as possible * Treated with ASA * Treated with diuretics * Spoke with Dr Suarez of [facility] surgical service at [facility] who has kindly accepted the pt in transfer for consideration of CABG * Spoke with pt. He agrees to transfer * Spoke with family. They agree * NSTEMI with continued symptoms LORNE URRUTIA MD FACP FAC CCDS Mar 23, 2021 16:52
[2021-03-23 17:00] VITALS: BP 138/101
--- NOTE | 2021-03-23 17:13 | Cardiology Discharge Summary ---
Diagnosis/Chief Complaint Date of Admission Mar 23, 2021 at 05:32 Date of Discharge Final/Discharge Diagnosis Acute HFrEF due to ischemic dilated cardiomyopathy - Echo 03/23/21: LVEF 30-35%, mod MR, biatrial enlargement PASP 50-55 mmHg - Card cath on 03/23/21: LVEF 10-15%, LVEDP 29 mmHg CAD, severe, multivessel - Small NSTEMI vs mild troponin elevation due to CHF on 03/22/21 - Card cath on 03/23/21: 70% distal LMCA, 95% ostial LAD, 99% prox LCX, chronically occluded RCA at its ostium Hypothyroidism - replacement tx Renal insuff of undetermined age. Suspect acute renal insuff due to CHF and low cardiac output Family h/o CAD - father age 46 passed from [place], siblings with CAD Chief Complaint/HPI Chief Complaint/HPI HPI Mr. Vogel is a 75 yr old male admitted to [facility] with c/o progressive dyspnea over the course of the last few weeks. He has dyspnea with rest, but it becomes significantly worse with any exertion. He states yesterday the SOB became worse and he was having mid-sternal chest pressure which lasted for approx 30 minutes. No other assoc symptoms. He reports dry cough over the last few weeks. No c/o n/v/d. No c/o fever or chills. He denies any palpitations. No c/o syncope or near syncope. He reports a year ago he was able to play 18 holes of golf and was very active. His SOB has been activity limiting. Discharge Summary Hospital Course Pending Labs Laboratory Tests 03/23/21 14:41: Troponin I 1.170 Discussion & Recommendations Home Medications Reviewed patient Home Medication Reconciliation performed by pharmacy medication reconciliations limited radiology technician and/or nursing. Patients Allergies have been reviewed. Discharge Home Medications: Reviewed and agree with Discharge Medication list on patient's Discharge Instruction sheet LORNE URRUTIA MD FACP FAC CCDS Mar 23, 2021 17:13
[2021-03-23 18:00] VITALS: BP 126/83
[2021-03-24] MEDS ORDERED: LEVOTHYROXINE 88 MCG (LEVOTHORID) TAB PO SCH (06:30)
[2021-03-24] MEDS ORDERED: CLOPIDOGREL 75 MG (PLAVIX) TABLET PO SCH (09:00)
[2021-03-24] MEDS ORDERED: meTOproloL SUCCINATE 50 MG (TOPROL XL) TAB PO SCH (09:00)
--- NOTE | 2021-03-25 19:02 | CARDIAC CATHETERIZATION ---
DATE OF SERVICE: 03/23/2021 CARDIAC CATHETERIZATION REPORT The patient is a 75-year-old gentleman who was admitted with acute, decompensated congestive heart failure. Troponin was minimally elevated. Because of new onset of congestive heart failure and demonstration of impaired left ventricular systolic function on echocardiography and elevated troponin, cardiac catheterization was recommended. Informed consent was obtained. DESCRIPTION OF PROCEDURE: He was brought to the cardiac catheterization laboratory in a fasting state. Both groins were prepared and draped in the usual sterile fashion. Lidocaine 1% was used for local anesthesia. We first attempted access through the right groin approach. We accessed the right femoral artery using the modified Seldinger technique. The patient had a coughing spell during sheath insertion. The sheath was then found to have been inserted into the right femoral vein. The sheath was removed, and pressure was held at the site for 20 minutes before approaching the left groin. Modified Seldinger technique was then used to gain access to the left femoral artery into which a 5-Maldivian sheath was placed and we then used 5-Maldivian JL4 catheter for left coronary angiography and a 5-Maldivian JR4 catheter was used for right coronary angiography. A 5-Maldivian pigtail catheter was used for left heart catheterization and left ventricular angiography. A 5-Maldivian pigtail catheter was also used for angiography of the descending thoracic aorta with runoff down to the level of the aortoiliac bifurcation. We then proceeded with balloon pump implantation. BALLOON PUMP IMPLANTATION: Descending and abdominal aortic angiography did not indicate obstruction. We exchanged the 5-Maldivian sheath into the left femoral artery over a long wire or a 9-Maldivian sheath. The wire was then removed, and we advanced the balloon pump catheter over a balloon pump wire. The tip of the catheter was placed just distal to the left subclavian artery origin. The catheter was then attached to a balloon pump and one to one augmentation was obtained. The patient tolerated the procedure well. HEMODYNAMICS: Left ventricular end-diastolic pressure following coronary angiography was 29 mmHg. There was no significant pressure gradient on pullback across the aortic valve. Systolic ascending aortic pressure was 100 mmHg. LEFT VENTRICULAR ANGIOGRAPHY: Left ventricular angiography was carried out in the right anterior oblique projection. Global left ventricular systolic function is markedly impaired. Left ventricular ejection fraction of 10% to 15%. There is posterobasal akinesis. There is global hypokinesis. CORONARY ANGIOGRAPHY: Left main coronary artery has 70% distal stenosis. Left anterior descending artery has 95% ostial plus stenosis. Left circumflex artery has a proximal 99% stenosis. The right coronary artery is occluded at its ostium. CONCLUSIONS: 1. Severe multivessel coronary artery disease consisting of 70% distal left main coronary artery, 95% ostial left anterior descending, 99% proximal left circumflex, and chronic total occlusion of the ostial right coronary. 2. Severe impairment of global left ventricular systolic function with global hypokinesis and with posterobasal akinesis and left ventricular ejection fraction 10% to 15%. 3. Elevated left ventricular end-diastolic pressure (29 mmHg). 4. Placement of intraaortic balloon pump. DISCUSSION AND RECOMMENDATIONS: Given severe coronary artery disease and severe impairment of global left ventricular systolic function, a balloon pump was placed. We spoke with Dr. Suarez of cardiovascular services at [facility] who accepted the patient in transfer. We discussed his findings with the patient and his family. They concurred with the plan to transfer for consideration of coronary artery bypass surgery. Job ID: [id number] DocumentID: [id number] Dictated Date: 03/25/2021 18:04:56 Campus Administrative Assistant Date: 03/25/2021 19:01:44 Dictated By: LORNE URRUTIA MD, MA, FACP, FACC, MTDD
== END 2021-03-23 19:00 | disposition short-term general hospital (02) | DRG 270 ==
LOC: EDUNIT# 23:55 → ER 23:58 → 4TH 03-23 05:32 → ICU 03-23 17:38
PROVIDERS: ADMIT Internal Medicine; ATTEND Internal Medicine
PROC: 4A023N7 Measurement of Cardiac Sampling and Pressure, Left Heart, Percutaneous Approach (ICD-10-PCS; principal; 2021-03-23)
PROC: 5A02210 Assistance with Cardiac Output using Balloon Pump, Continuous (ICD-10-PCS; 2021-03-23)
PROC: B2111ZZ Fluoroscopy of Multiple Coronary Arteries using Low Osmolar Contrast (ICD-10-PCS; 2021-03-23)
PROC: B2151ZZ Fluoroscopy of Left Heart using Low Osmolar Contrast (ICD-10-PCS; 2021-03-23)
DX: I50.21 Acute systolic (congestive) heart failure (principal); J96.01 Acute respiratory failure with hypoxia; I21.4 Non-ST elevation (NSTEMI) myocardial infarction; I42.0 Dilated cardiomyopathy; I25.5 Ischemic cardiomyopathy; E03.9 Hypothyroidism, unspecified; Z87.891 Personal history of nicotine dependence; I25.10 Atherosclerotic heart disease of native coronary artery without angina pectoris; Z20.822 Contact with and (suspected) exposure to COVID-19; N28.9 Disorder of kidney and ureter, unspecified; Z79.82 Long term (current) use of aspirin; Z82.49 Family history of ischemic heart disease and other diseases of the circulatory system
CPT/HCPCS: 33967; 36415; 71045; 71275; 80053; 83880; 84145; 84484; 85025; 86141; 87081; 87636; 93005; 93306; 93458; 94640; 94760

== ENCOUNTER 2021-08-02 09:22 | Outpatient (RCR) | payer MEDICARE ==
[~2021-08-02 09:22] MED LIST: ASPI-789 PO; DIPH25TA65 PO; LEVO88TA54 PO; MULT-1029 PO
== END 2021-08-08 | disposition home or self-care (01) ==
LOC: CR 09:22
PROVIDERS: ATTEND Internal Medicine Cardiovascular Disease
DX: I50.9 Heart failure, unspecified (principal)
CPT/HCPCS: 93798

== ENCOUNTER → 2023-02-11 | Outpatient (CLI) | payer MEDICARE ==
[~2023-02-11] MED LIST changes: -ASPI-789 PO; +ASPI1TAB23 PO
[2023-02-11 12:44] LABS: HEMATOCRIT 37 % (40-54); HEMOGLOBIN 12.2 g/dL (13.3-17.7); MEAN CORPUSCULAR HEMOGLOBIN 32 pg (25-34); MEAN CORPUSCULAR HGB CONC 33 g/dL (32-36); MEAN CORPUSCULAR VOLUME 97 fL (80-99); PLATELET COUNT 157 10^3/uL (130-400); WHITE BLOOD COUNT 8.9 10^3/uL (4.3-11.0)
[2023-02-11 12:55] LABS: ALBUMIN 3.9 GM/DL (3.2-4.5); POTASSIUM 5.1 MMOL/L (3.6-5.0)
[2023-02-11 12:56] LABS: CALCIUM 8.7 MG/DL (8.5-10.1)
[2023-02-11 12:58] LABS: TOTAL PROTEIN 7.4 GM/DL (6.4-8.2)
[2023-02-11 13:00] LABS: BILIRUBIN,TOTAL 0.8 MG/DL (0.1-1.0)
[2023-02-11 13:01] LABS: CREATININE SERUM 1.76 MG/DL (0.60-1.30)
[2023-02-11 13:05] LABS: MAGNESIUM 2.5 MG/DL (1.6-2.4)
[2023-02-11 13:11] LABS: CREATINE KINASE MB 2.2 NG/ML (<6.6)
== END ==
LOC: LAB 12:27
PROVIDERS: ATTEND Nurse Practitioner Family
DX: I50.9 Heart failure, unspecified (principal); R60.9 Edema, unspecified
CPT/HCPCS: 36415; 80053; 82553; 83735; 83880; 84484; 85027